=== PATIENT | female | born 1980 | race Caucasian/White ===

== ENCOUNTER → 2021-06-14 17:50 | Outpatient (CLI) | payer OTHER, SELFPAY ==
[2021-06-14 19:19] LABS: COVID19 -Nasal RAPID Negative (Negative)
== END ==
PROVIDERS: Visit Provider Nurse Practitioner Family
DX: Z20.822 Contact with and (suspected) exposure to COVID-19 (principal)
CPT/HCPCS: 87635

== ENCOUNTER 2022-01-07 20:18 | Emergency (ER) | payer OTHER, SELFPAY ==
[2022-01-07 20:30] VITALS: BP 129/78; PULSE 82; RESP 16; TEMP 36.6; O2SAT 96; BMI 34.7
--- NOTE | 2022-01-07 20:39 | ED_ITS ---
HPI - Head Injury General Chief complaint: Head Injury Stated complaint: HEAD INJURY FROM RV Time Seen by Provider: 01/07/22 20:24 Source: patient Mode of arrival: Ambulatory History of Present Illness HPI Narrative: 41-year-old female nonsmoker with noncontributory medical history presents with a chief complaint of injuries suffered just prior to her arrival. She had been in her normal state of health and was working on her RV when the strap holding the awning gave way and it collapsed on her head. She has pain on the top of her head and did not lose consciousness and has no blurred vision. She denies use of blood thinners or alcohol. Her vision blacked out briefly and she is a bit dizzy in the aftermath. Additionally she has pain in the midline of her neck and upper back that is worse with motion and palpation. She denies any chest pain or shortness of breath. She denies any numbness, tingling or weakness of her upper or lower extremities. Her pain is worse with motion and improves with rest. She is otherwise well and free of complaint. Related Data Home Medications Medication Instructions Recorded Confirmed benzonatate 100 mg capsule 100 mg PO BID PRN 12/29/21 12/29/21 bupropion HCl 150 mg 24 hr tablet, 150 mg PO QAM 12/29/21 12/29/21 extended release citalopram 10 mg tablet 10 mg PO DAILY 12/29/21 12/29/21 ondansetron 8 mg disintegrating 8 mg PO Q12H 12/29/21 12/29/21 tablet prednisone 20 mg tablet 20 mg PO DAILY 12/29/21 12/29/21 Allergies Allergy/AdvReac Type Severity Reaction Status Date / Time No Known Drug Allergies Allergy Unverified 12/29/21 18:33 Review of Systems Review of Systems Narrative: GENERAL: See HPI HEENT: Denies sinus pain, ear pain, sore throat, difficulty swallowing, dizziness. RESPIRATORY: Denies dyspnea, cough, wheezing, hemoptysis, sputum. CARDIOVASCULAR: Denies chest pain, palpitations, orthopnea, edema, GASTROINTESTINAL: Denies nausea, vomiting, abdominal pain, diarrhea, constipation, melena. : Denies dysuria, frequency, incontinence, hematuria, urinary retention. MUSCULOSKELETAL: See HPI SKIN: Denies rash, skin lesions, or other NEUROLOGIC: See HPI PSYCHIATRIC: No concerning psychosocial issues. 12 point review of systems is negative except for those stated above Patient History Social History Smoking Status: Never smoker Smoking Status: Never smoker alcohol intake frequency: holidays/special occasions only Substance Use Type: does not use Exam Narrative Exam Narrative: GENERAL: 41 [] year old patient appears stated age. Well-developed patient, in mild distress. GCS 15 HEAD: Superficial abrasion midline top of head with very minimal swelling and no evidence of depressed skull fracture. EYES: Pupils equal round and reactive. No hyphema Extraocular motions intact. No scleral icterus. No injection or drainage. ENT: Nose without bleeding, purulent drainage. No nasal septal hematoma Throat without erythema, tonsillar hypertrophy or exudate. Airway patent. NECK: Trachea midline. Mild midline tenderness in the inferior cervical spine without swelling, step-off or crepitance, no change with axial load, no extremity weakness, pain or tingling. Tenderness extends into the upper Thoracics, again no swelling, induration, step-offs or crepitance CARDIOVASCULAR: Regular rate and rhythm without murmurs, gallops, or rubs. RESPIRATORY: Clear to auscultation. Breath sounds equal bilaterally. No wheezes, rales, or rhonchi. GASTROINTESTINAL: Abdomen soft, non-tender, nondistended. EXTREMITIES: No edema or joint tenderness. BACK: Nontender without deformity or crepitance. No flank tenderness. NEURO: AOx3. SKIN: No rash or erythema of visible areas Initial Vital Signs Initial Vital Signs: Vital Signs Temperature 98 F 01/07/22 20:30 Pulse Rate 82 01/07/22 20:30 Respiratory Rate 16 01/07/22 20:30 Blood Pressure 129/78 01/07/22 20:30 Pulse Oximetry 96 01/07/22 20:30 Course Orders Ordered: ED Orders 01/07/22 20:52 CT cervical spine wo con Stat CT head/brain wo con Stat CT thoracic spine wo con Stat Vital Signs Vital signs: Vital Signs - 8 hr 01/07/22 20:30 01/07/22 22:45 Temperature 98 F Pulse Rate 82 70 Respiratory Rate 16 18 Blood Pressure 129/78 108/62 Pulse Oximetry 96 99 MDM - Head Injury Imaging Data CT - cervical spine: Radiologist's Impression: Chart Viewer Diagnostics Subcategory All Activity ??:?? All Time ??:?? All Subcategories Filter Laboratory Imaging Microbiology Pathology Blood Bank Tests Cardiovascular Other Specialty DATE TYPE STATUS REF RANGE/AUTHOR Hx Today 20:[address] Signed Brittaney Frazier Today 20:[address] ? Today 20:[address] Signed Brittaney Frazier Bobbi J ED 41, F?1980 MRN#? [id number] [facility],?[facility] ED??R10?? 157.48cm 86kg BMI: 34.7kg/m? Head Injury Acc#? [id number] Resus Status Not Ordered No Hx Avail Special Indicators No Data to Display Home Meds Not Confirmed Prescription Monitoring Program MEDICATIONS (INSTRUCTIONS) LAST TAKEN Active ??benzonatate 100 mg capsule ??100 mgPOBIDPRN ??bupropion HCl 150 mg 24 hr tablet, extended release ??150 mgPOQAM ??citalopram 10 mg tablet ??10 mgPODAILY ??ondansetron 8 mg disintegrating tablet ??8 ceHCP76A ??prednisone 20 mg tablet ??20 mgPODAILY Allergies No Known Drug Allergies Problems ? ONSET Lymphadenopathy Vital Signs Today 20:30 BP 129/78? Pulse 82? Resp 16? Temp 98 F? O2 Sat 96? Delivery Room Air? Diagnostics Reports Mary Theodore??41??F??1980 ? Allergy/Adv: No Known Drug Allergies Close Thoracic Spine CT (Signed) FreddieBrittaney - 01/07/[address] 01/07/[address] (Signed) Brittaney Frazier - 01/07/22 Launch?[place] [address] CT Scan Report Signed Patient: Mary Theodore MR#: [id number] : 1980 Acct:[id number] Age/Sex: 41 / F Date of Service: 01/07/22 Loc: ED Accession Number: [id number] ?? Procedure: CT cervical spine wo con Ordering Provider: Shawn Buchanan D.O. PROCEDURE:? CT CERVICAL SPINE WO CON ? INDICATIONS:? heavy object landed on head, midline neck pain ? TECHNIQUE:? Noncontrast 3 mm thick sections acquired from the skull base to the T4 level.? Sagittal and coronal reformats were then constructed.? For radiation dose reduction, the following was used:? automated exposure control, adjustment of mA and/or kV according to patient size.? ? COMPARISON:? None. ? FINDINGS:? Image quality:? Excellent.? ? Bones:? The craniocervical junction is intact.? No fractures or dislocations.? Prominent posterior endplate osteophytes and mild degenerative disc height loss at C5-6.? Slight kyphosis at this level.? Otherwise normal bone alignment.? Visualized superior ribs are intact.? ? Soft tissues:? Prevertebral soft tissues are normal in thickness.? No paravertebral hematomas.? No apical pneumothoraces.? Incidental note made of partially imaged bilateral maxillary sinus and sphenoid sinus disease. ? ? IMPRESSION:? ? 1. No CT evidence of acute cervical spine injury. ? 2. Degenerative disc and endplate change at C5-6 resulting in slight kyphosis. ? Dictated by: Brittaney Frazier M.D. on 01/07/2022 at 22:22 ? ? Approved by: Brittaney Frazier M.D. on 01/07/2022 at 22:25 ? Thoracic CT: Radiologist's Impression: Launch?[place] [address] CT Scan Report Signed Patient: Mary Theodore MR#: [id number] : 1980 Acct:[id number] Age/Sex: 41 / F Date of Service: 01/07/22 Loc: ED Accession Number: [id number] ?? Procedure: CT thoracic spine wo con Ordering Provider: Shawn Buchanan D.O. PROCEDURE:? CT THORACIC SPINE WO CON ? INDICATIONS:? axial load from trauma, midline upper thoracic pain ? TECHNIQUE:? Noncontrast 3 mm thick sections acquired through the region of interest in the thoracic spine.? Sagittal and coronal reformats were then constructed.? For radiation dose reduction, the following was used:? automated exposure control.? ? COMPARISON:? None. ? FINDINGS:? Image quality:? Excellent.? ? Bones:? There is normal overall bony alignment.? No acute vertebral body compression fractures.? No suspicious sclerotic or lytic bony lesions.? Central spinal canal is of normal overall caliber.? ? Soft tissues:? No paravertebral masses or hematomas.? Visualized posteromedial lungs appear clear.? ? IMPRESSION:? ? 1. No CT evidence of acute thoracic spine injury.? ? ? Dictated by: Brittaney Frazier M.D. on 01/07/2022 at 22:15 ? ? Approved by: Brittaney Frazier M.D. on 01/07/2022 at 22:22 ? CT scan - head: Radiologist's Impression: Launch?[address] [address] [address] Scan Report Signed Patient: Mary Theodore MR#: [id number] : 1980 Acct:[id number] Age/Sex: 41 / F Date of Service: 01/07/22 Loc: ED Accession Number: [id number] ?? Procedure: CT head/brain wo con Ordering Provider: Shawn Buchanan D.O. PROCEDURE:? CT HEAD/BRAIN WO CON ? INDICATIONS:? head injury, dizzy, vision blacked out ? TECHNIQUE:? Noncontrast 4.5 mm thick angled axial sections acquired from the foramen magnum to the vertex, with coronal and sagittal reformats.? For radiation dose reduction, the following was used:? automated exposure control, adjustment of mA and/or kV according to patient size.? ? COMPARISON:? None. ? FINDINGS:? Image quality:? Excellent.? ? CSF spaces:? Basal cisterns are patent.? No extra-axial fluid collections.? Ventricles are normal in size and shape.? ? Brain:? No midline shift.? No intracranial masses or hemorrhage.? Ponce-white matter interface is normal.? ? Skull and face:? Calvarium and visualized facial bones are intact, without suspicious lesions.? ? Sinuses:? Moderate mucosal thickening circumferentially in the visible right and left maxillary sinus, partial opacification of the right ethmoid air cells, and small amount of mucus in the right sphenoid sinus.? Mastoid cavities are normally aerated. ? IMPRESSION:? ? 1. No CT evidence of acute intracranial trauma. ? 2. No evidence of acute calvarial fracture or significant soft tissue injury. ? 3. Chronic appearing sinus disease as described.? ? ? Dictated by: Brittaney Frazier M.D. on 01/07/2022 at 22:25 ? ? Approved by: Brittaney Frazier M.D. on 01/07/2022 at 22:27 ? Discharge Plan Departure Patient Disposition: Home Clinical Impression: Concussion, Acute neck pain Instructions: Concussion Activity Restrictions/Additional Instructions: *You have been diagnosed with [concussion and cervical spasm. Thankfully, your history and physical exam as well as CT scans are very reassuring. There is no evidence of bleeding in your brain, skull fracture or fractures in your spine. *What to do: *Please continue to take your regular medications as directed. [ ] New medication prescriptions sent to your pharmacy: [ ] [ ] New medication written as a paper prescription [x ] No new medications given *Please follow up with your primary care provider in 2-3 days, call for an appointment. Let them know you were seen in the Emergency Department and that we ask that you be seen in follow up. We will electronically transmit a record of today's note if your PCP is in our system You have a slight concussion and will likely have a mild headache and some nausea for a few days. Avoiding highly stimulating activities and even TV or computers may be helpful in minimizing your symptoms. Avoid activities that will put you at risk for another head injury for at least a week. You can take tylenol or motrin for headache Return for worsening or persistent symptoms *If you do not have a primary care provider please contact the [facility] Resource line at [phone]. They will ask some questions about your medical history and help get you set up with a doctor in the community. *Return to Emergency Department if you should have any new, worsening or concerning symptoms, such as [fever greater than 101 F, shaking chills, worsening pain, persistent vomiting or other bothersome symptoms] Prescriptions: No Action bupropion HCl 150 mg tablet extended release 24 hr 150 mg PO QAM 0RF ondansetron 8 mg tablet,disintegrating 8 mg PO Q12H 0RF benzonatate 100 mg capsule 100 mg PO BID PRN0RF prednisone 20 mg tablet 20 mg PO DAILY 0RF citalopram 10 mg tablet 10 mg PO DAILY 0RF
--- NOTE | 2022-01-07 20:52 | DI.CT.S_ITS ---
PROCEDURE: CT HEAD/BRAIN WO CON INDICATIONS: head injury, dizzy, vision blacked out TECHNIQUE: Noncontrast 4.5 mm thick angled axial sections acquired from the foramen magnum to the vertex, with coronal and sagittal reformats. For radiation dose reduction, the following was used: automated exposure control, adjustment of mA and/or kV according to patient size. COMPARISON: None. FINDINGS: Image quality: Excellent. CSF spaces: Basal cisterns are patent. No extra-axial fluid collections. Ventricles are normal in size and shape. Brain: No midline shift. No intracranial masses or hemorrhage. Ponce-white matter interface is normal. Skull and face: Calvarium and visualized facial bones are intact, without suspicious lesions. Sinuses: Moderate mucosal thickening circumferentially in the visible right and left maxillary sinus, partial opacification of the right ethmoid air cells, and small amount of mucus in the right sphenoid sinus. Mastoid cavities are normally aerated. IMPRESSION: 1. No CT evidence of acute intracranial trauma. 2. No evidence of acute calvarial fracture or significant soft tissue injury. 3. Chronic appearing sinus disease as described. Dictated by: Brittaney Frazier M.D. on 01/07/2022 at 22:25 Approved by: Brittaney Frazier M.D. on 01/07/2022 at 22:27
--- NOTE | 2022-01-07 20:52 | DI.CT.S_ITS ---
PROCEDURE: CT CERVICAL SPINE WO CON INDICATIONS: heavy object landed on head, midline neck pain TECHNIQUE: Noncontrast 3 mm thick sections acquired from the skull base to the T4 level. Sagittal and coronal reformats were then constructed. For radiation dose reduction, the following was used: automated exposure control, adjustment of mA and/or kV according to patient size. COMPARISON: None. FINDINGS: Image quality: Excellent. Bones: The craniocervical junction is intact. No fractures or dislocations. Prominent posterior endplate osteophytes and mild degenerative disc height loss at C5-6. Slight kyphosis at this level. Otherwise normal bone alignment. Visualized superior ribs are intact. Soft tissues: Prevertebral soft tissues are normal in thickness. No paravertebral hematomas. No apical pneumothoraces. Incidental note made of partially imaged bilateral maxillary sinus and sphenoid sinus disease. IMPRESSION: 1. No CT evidence of acute cervical spine injury. 2. Degenerative disc and endplate change at C5-6 resulting in slight kyphosis. Dictated by: Brittaney Frazier M.D. on 01/07/2022 at 22:22 Approved by: Brittaney Frazier M.D. on 01/07/2022 at 22:25
--- NOTE | 2022-01-07 20:52 | DI.CT.S_ITS ---
PROCEDURE: CT THORACIC SPINE WO CON INDICATIONS: axial load from trauma, midline upper thoracic pain TECHNIQUE: Noncontrast 3 mm thick sections acquired through the region of interest in the thoracic spine. Sagittal and coronal reformats were then constructed. For radiation dose reduction, the following was used: automated exposure control. COMPARISON: None. FINDINGS: Image quality: Excellent. Bones: There is normal overall bony alignment. No acute vertebral body compression fractures. No suspicious sclerotic or lytic bony lesions. Central spinal canal is of normal overall caliber. Soft tissues: No paravertebral masses or hematomas. Visualized posteromedial lungs appear clear. IMPRESSION: 1. No CT evidence of acute thoracic spine injury. Dictated by: Brittaney Frazier M.D. on 01/07/2022 at 22:15 Approved by: Brittaney Frazier M.D. on 01/07/2022 at 22:22
[2022-01-07 22:45] VITALS: BP 108/62; PULSE 70; RESP 18; O2SAT 99
== END 2022-01-07 22:45 | disposition home or self-care (01) ==
PROVIDERS: Emergency Provider Emergency Medicine
DX: S06.0X0A Concussion without loss of consciousness, initial encounter (principal); M54.2 Cervicalgia; W20.8XXA Other cause of strike by thrown, projected or falling object, initial encounter
CPT/HCPCS: 70450; 72125; 72128; 99283; 99284

== ENCOUNTER → 2024-02-22 07:14 | Outpatient (CLI) | payer OTHER, SELFPAY ==
[2024-02-22 08:32] LABS: Add Manual Diff / Slide Review NO; Basophils Absolute Auto 0 /uL (0-100); Basophils Percent Auto 0.4 % (0-2); Eosinophils Absolute Auto 0 /uL (0-450); Eosinophils Percent Auto 0.6 % (2-4); Hematocrit 47.4 % (36-46); Hemoglobin 15.9 g/dL (12.0-16.0); Lymphocytes Absolute Auto 2800 /uL (1100-4500); Lymphocytes Percent Auto 36.4 % (25-40); Mean Corpuscular HGB Conc 33.5 % (30-36); Mean Corpuscular Hemoglobin 27.5 PG (26-34); Mean Corpuscular Volume 82.1 fL (80-100); Monocytes Absolute Auto 500 /uL (0-900); Monocytes Percent Auto 6.7 % (3-14); Neutrophils Absolute Auto 4300 /uL (1500-7000); Neutrophils Percent Auto 55.9 % (50-75); Platelet Count 319 X10^3/uL (150-400); Red Blood Cell Count 5.77 X10^6/uL (4.0-5.2); Red Cell Distribution Width 14.4 % (11.6-14.8); White Blood Cell Count 7.7 X10^3/uL (4.5-11.0)
[2024-02-26 08:42] LABS: Alanine Aminotransferase 21 IU/L (<35); Albumin 4.3 g/dL (3.5-5.0); Albumin Globulin Ratio 1.4 (1.0-2.8); Alkaline Phosphatase 89 U/L (38-126); Aspartate Aminotransferase 28 IU/L (14-36); BUN Creatinine Ratio 18.8 (6-22); Bilirubin Total 0.7 mg/dL (0.2-1.3); Blood Urea Nitrogen 12 mg/dL (7-17); Calcium 9.1 mg/dL (8.4-10.2); Carbon Dioxide 26 mmol/L (22-32); Chloride 106 mmol/L (98-107); Cholesterol 157 mg/dL (140-199); Estimated Glomerular Filt Rate > 60 mL/min (>60); Glucose 80 mg/dL (70-100); HDL Cholesterol 75 mg/dL (40-60); HEMOLYSIS 19 (0-50); LDL Cholesterol Calculated 68 mg/dL (<100); Potassium 3.9 mmol/L (3.4-5.1); Sodium 137 mmol/L (137-145); Total Protein 7.3 g/dL (6.3-8.2); Triglycerides 72 mg/dL (35-150)
[2024-02-26 09:14] LABS: TSH w/ Reflex to FT4 9.21 uIU/mL (0.47-4.68)
[2024-02-26 17:42] LABS: Free T4, Direct Thyroxine 1.25 ng/dL (0.78-2.19)
== END ==
PROVIDERS: Referring Provider Physician Assistant; Visit Provider Physician Assistant
DX: E66.9 Obesity, unspecified (principal)
CPT/HCPCS: 36415; 80053; 80061; 84439; 84443; 85025